=== PATIENT | female | born 1985 | race Caucasian/White ===

== ENCOUNTER → 2018-07-17 | Outpatient (CLI) | payer BC ==
--- NOTE | 2018-07-17 13:09 | KCIC ---
Right upper quadrant abdominal ultrasound History: Right upper quadrant abdominal pain. Pancreas cyst. Comparison: Limited abdominal ultrasound September 20, 2016. Technique: Transabdominal ultrasound images are obtained. Findings: Round cystic lesion of the pancreas head measures 2.4 x 2.4 x 1.9 cm. On prior study it measured 2.7 x 2.5 x 2.5 cm. Pancreas is not well-visualized. Liver is increased in echogenicity. There is decreased through-transmission. There is a left hepatic cyst measuring up to 2.2 cm. Portal flow is hepatopedal. Right hepatic lobe measures 17.3 cm, normal. Gallbladder has an unremarkable appearance. Common bile duct caliber is normal measuring 3 mm in diameter. The right kidney measures 11.0 cm in length and is without evidence of obstruction or stone. Visualized portions of the aorta and IVC have normal caliber. IMPRESSION: 1. Round cystic lesion of the pancreas head is stable to slightly smaller. 2. Left hepatic cyst. Fatty infiltration of the liver. Electronically signed by: Dajuan Gustafson MD (07/17/2018 1:05 PM) [id number]
== END | disposition home or self-care (01) ==
LOC: KCIC US 08:51
PROVIDERS: ATTEND Physician Assistant Medical
DX: K86.2 Cyst of pancreas (principal)
CPT/HCPCS: 76705